=== PATIENT | female | born 1990 | race Caucasian/White ===

== ENCOUNTER 2020-09-20 14:32 | Outpatient (CLI) | payer OTHER ==
[~2020-09-20] VITALS: Ht 154.9 cm; Wt 93.6 kg
[~2020-09-20 14:32] MED LIST: CYCL10TA2 PO
[2020-09-20 14:41] VITALS: BP 123/72
[2020-09-20 15:22] LABS: MICROSCOPIC INDICATED
== END 2020-09-20 16:10 | disposition home or self-care (01) ==
LOC: LDOP 14:32
PROVIDERS: ATTEND Obstetrics & Gynecology
DX: O26.893 Other specified pregnancy related conditions, third trimester (principal); R10.9 Unspecified abdominal pain; Z3A.38 38 weeks gestation of pregnancy
CPT/HCPCS: 59025; 81001; 87086

== ENCOUNTER 2020-09-27 16:21 | Inpatient (IN) | payer OTHER ==
[~2020-09-27] VITALS: Ht 154.9 cm; Wt 93.2 kg
[2020-10-01] MEDS ORDERED: OXYTOCIN 30U/ 0.9% NaCL 500ML 500 ML ONE (05:13)
[2020-10-01] MEDS ORDERED: NEWBORN KIT ONE (05:13)
[2020-10-01] MEDS ORDERED: LIDOCAINE 1%, 20ML ONE (05:13)
[2020-10-01] MEDS ORDERED: MISOPROSTOL 200 MCG TABLET ONE (05:13)
[2020-10-01] MEDS ORDERED: SODIUM CITRATE/CITRIC ACID 30 ML UDC PO PRN (05:30)
[2020-10-01] MEDS ORDERED: OXYTOCIN 30U/ 0.9% NaCL 500ML 500 ML IV PRN (05:30)
[2020-10-01] MEDS ORDERED: METOCLOPRAMIDE 5 MG/ML, 2ML IVPush PRN (05:30)
[2020-10-01] MEDS ORDERED: TERBUTALINE 1 MG/ML, 1ML SQ PRN (05:30)
[2020-10-01] MEDS ORDERED: SODIUM CHLORIDE FLUSH 10ML SYR IVF PRN (05:30)
[2020-10-01] MEDS: D5%-LACTATED RINGERS 1,000 ML IV SCH ×3 (05:30→21:30)
[2020-10-01] MEDS ORDERED: ALUMINUM/MAG/SIMETHICONE 30 ML UDC PO PRN (05:30)
[2020-10-01] MEDS ORDERED: ONDANSETRON 2MG/ML, 2ML IVPush PRN (05:30)
[2020-10-01] MEDS ORDERED: FENTANYL PF 100 MCG/2ML IV PRN (05:30)
[2020-10-01] MEDS ORDERED: FENTANYL PF 100 MCG/2ML IVPush PRN (05:30)
[2020-10-01] MEDS ORDERED: OXYTOCIN 30U/ 0.9% NaCL 500ML 500 ML IV ONE (05:30)
[2020-10-01] MEDS ORDERED: CALCIUM CARBONATE 500 MG TAB.CHEW PO PRN (05:30)
[2020-10-01] MEDS ORDERED: TERBUTALINE 1 MG/ML, 1ML IVPush PRN (05:30)
[2020-10-01 05:45] LABS: BASOPHILS % (AUTO) 1 % (0-1); EOSINOPHILS % (AUTO) 2 % (1-7); LYMPHOCYTES % (AUTO) 22 % (22-44); MEAN CORPUSCULAR HEMOGLOBIN 33.3 pg (27.0-34.8); MEAN CORPUSCULAR HGB CONC 34.7 g/dL (32.4-35.8); MEAN PLATELET VOLUME 7.7 fL (7.4-10.4); MONOCYTES % (AUTO) 8 % (2-9); NEUTROPHILS % (AUTO) 68 % (42-75); PLATELET COUNT 208 x10^3/uL (130-400); RED BLOOD COUNT 3.96 x10^6/uL (3.82-5.3); RED CELL DISTRIBUTION WIDTH 13.8 % (9.6-15.2)
[2020-10-01] MEDS: LACTATED RINGERS 1,000 ML IV SCH ×4 (05:46→19:00)
[2020-10-01 05:47] LABS: MD NO
[2020-10-01] MEDS ORDERED: ONDANSETRON 2MG/ML, 2ML ONE (05:53)
[2020-10-01 05:57] VITALS: BP 108/71
[2020-10-01] MEDS ORDERED: PLEASE ENTER HEIGHT AND WEIGHT MC SCH (06:00)
[2020-10-01] MEDS ORDERED: FENTANYL/BUPIV./NS/PF 250 ML EPIDCONT ONE (10:23)
[2020-10-01] MEDS ORDERED: BUPIVACAINE 0.25% ONE (10:24)
[2020-10-01] MEDS ORDERED: FENTANYL/BUPIV./NS/PF 250 ML EPIDCONT SCH (10:30)
[2020-10-01] MEDS ORDERED: NALOXONE 0.4 MG/ML, 1ML IVPush PRN (10:30)
[2020-10-01] MEDS ORDERED: EPHEDRINE 50 MG/ML, 1ML IVPush PRN (10:30)
[2020-10-01] MEDS ORDERED: LACTATED RINGERS 1,000 ML IVBOLUS PRN (11:00)
[2020-10-01] MEDS ORDERED: MISOPROSTOL 200 MCG TABLET PR PRN (13:00)
[2020-10-01] MEDS ORDERED: ONDANSETRON 2MG/ML, 2ML IV PRN (13:00)
[2020-10-01] MEDS ORDERED: ACETAMINOPHEN 325 MG TABLET PO PRN (13:00)
[2020-10-01] MEDS: OXYTOCIN 30U/ 0.9% NaCL 500ML 500 ML IV SCH ×2 (13:00→23:00)
[2020-10-01] MEDS ORDERED: SIMETHICONE 80 MG CHEW TAB PO PRN (13:00)
[2020-10-01] MEDS ORDERED: OXYcodone IR 5MG TABLET PO PRN (13:00)
[2020-10-01 15:10] VITALS: BP 111/67
[2020-10-01 19:27] VITALS: BP 101/67
[2020-10-01 20:38] LABS: BASOPHILS % (AUTO) 1 % (0-1); EOSINOPHILS % (AUTO) 1 % (1-7); LYMPHOCYTES % (AUTO) 16 % (22-44); MEAN CORPUSCULAR HEMOGLOBIN 32.5 pg (27.0-34.8); MEAN CORPUSCULAR HGB CONC 33.9 g/dL (32.4-35.8); MEAN PLATELET VOLUME 7.8 fL (7.4-10.4); MONOCYTES % (AUTO) 8 % (2-9); NEUTROPHILS % (AUTO) 75 % (42-75); PLATELET COUNT 204 x10^3/uL (130-400); RED BLOOD COUNT 3.91 x10^6/uL (3.82-5.3); RED CELL DISTRIBUTION WIDTH 13.9 % (9.6-15.2)
[2020-10-01 21:03] LABS: MD SCAN
[2020-10-02 01:03] VITALS: BP 102/71
[2020-10-02] MEDS: IBUPROFEN 600 MG TABLET PO PRN ×3 (01:14→15:52)
[2020-10-02 04:30] VITALS: BP 100/68
[2020-10-02 07:48] VITALS: BP 109/74
[2020-10-02] MEDS: PRENATAL VIT/IRON/FA 1 EACH TABLET PO SCH (08:46)
[2020-10-02] MEDS: DOCUSATE 100 MG CAPSULE PO PRN (08:47)
[2020-10-02] MEDS: OXYTOCIN 30U/ 0.9% NaCL 500ML 500 ML IV SCH (09:00)
[2020-10-02] MEDS: OXYcodone/APAP 5/325MG TABLET PO PRN ×3 (12:01→15:55)
[2020-10-02 20:45] VITALS: BP 119/84
[2020-10-03] MEDS: IBUPROFEN 600 MG TABLET PO PRN (07:46)
[2020-10-03] MEDS: PRENATAL VIT/IRON/FA 1 EACH TABLET PO SCH (07:47)
[2020-10-03] MEDS: DOCUSATE 100 MG CAPSULE PO PRN (07:47)
[2020-10-03 09:10] VITALS: BP 107/73
[2020-10-03] MEDS ORDERED: IBUP-1222 PO (12:36)
== END 2020-10-03 14:55 | disposition home or self-care (01) | DRG 807 ==
LOC: LDIP 10-01 05:10 → 2NW 10-01 15:00
PROVIDERS: ADMIT Obstetrics & Gynecology; ATTEND Obstetrics & Gynecology
PROC: 10E0XZZ Delivery of Products of Conception, External Approach (ICD-10-PCS; principal; 2020-10-01)
PROC: 3E0R3BZ Introduction of Anesthetic Agent into Spinal Canal, Percutaneous Approach (ICD-10-PCS; 2020-10-01)
PROC: 00HU33Z Insertion of Infusion Device into Spinal Canal, Percutaneous Approach (ICD-10-PCS; 2020-10-01)
DX: O80 Encounter for full-term uncomplicated delivery (principal); Z37.0 Single live birth; Z3A.39 39 weeks gestation of pregnancy; Z20.822 Contact with and (suspected) exposure to COVID-19
CPT/HCPCS: 36415; 85025; 86592; 86850; 86900; 87635; G0378; J2405; J3010; J2590; J7120